=== PATIENT | female | born 1940 | race Caucasian/White ===

== ENCOUNTER → 2017-11-14 | Outpatient (CLI) | payer MEDICARE ==
[~2017-11-14] MED LIST: ASPI-650 PO; BIOT25005 PO; CALC200T3 PO; CEPH-376 PO; CHOL100012 PO; CHOL10003 PO; CYAN1TAB29 PO; DOCU100T6 PO; DOXY100T10 PO; HYDR-3240 PO; HYDR200T PO; IBUP-1221 PO; Iron Supplement PO; LACT1CAP35 PO; LACT1CAP37 PO; MOME13HF2 INH; MULT-257 PO; OMEP-110 PO; SULF1TAB24; URSO300C27 PO
[2017-11-14 14:54] LABS: BASOPHILS # (AUTO) 0.02 x10^3/uL (0-0.1); BASOPHILS % (AUTO) 0 % (0-1); EOSINOPHILS # (AUTO) 0.15 x10^3/uL (0-0.4); EOSINOPHILS % (AUTO) 2 % (1-7); LYMPHOCYTES # (AUTO) 0.86 x10^3/uL (1-3.4); LYMPHOCYTES % (AUTO) 14 % (22-44); MD NO; MEAN CORPUSCULAR HEMOGLOBIN 30.7 pg (27.0-34.8); MEAN CORPUSCULAR HGB CONC 33.6 g/dL (32.4-35.8); MEAN CORPUSCULAR VOLUME 91.4 fL (80-100); MEAN PLATELET VOLUME 8.6 fL (7.4-10.4); MONOCYTES # (AUTO) 0.35 x10^3/uL (0.2-0.8); MONOCYTES % (AUTO) 6 % (2-9); NEUTROPHILS # (AUTO) 4.84 x10^3/uL (1.8-6.8); NEUTROPHILS % (AUTO) 78 % (42-75); PLATELET COUNT 246 x10^3/uL (130-400); RED BLOOD COUNT 3.79 x10^6/uL (3.82-5.3); RED CELL DISTRIBUTION WIDTH 14.1 % (9.6-15.2)
[2017-11-14 15:01] LABS: ANION GAP 6 mmol/L (5-15); CHLORIDE 105 mmol/L (98-107)
[2017-11-14 15:17] LABS: MICROSCOPIC AUTO
[2017-11-14 15:26] LABS: CULTURE INDICATED? YES
[2017-11-14 15:45] LABS: HCT (SEDRATE) 34.7 % (34.6-47.8)
== END | disposition home or self-care (01) ==
LOC: STAR 12:35
PROVIDERS: ATTEND Orthopaedic Surgery
DX: Z01.818 Encounter for other preprocedural examination (principal); I10 Essential (primary) hypertension; R82.99 Other abnormal findings in urine; Z90.710 Acquired absence of both cervix and uterus; Z96.651 Presence of right artificial knee joint; T84.53XD Infection and inflammatory reaction due to internal right knee prosthesis, subsequent encounter; S83.124 Posterior dislocation of proximal end of tibia, right knee; X58.XXXD Exposure to other specified factors, subsequent encounter
CPT/HCPCS: 36415; 80048; 81001; 85025; 85651; 86141; 87081; 87086; 93005

== ENCOUNTER 2017-12-27 10:11 | Inpatient (IN) | payer MEDICARE ==
[~2017-12-27] VITALS: Ht 162.6 cm; Wt 76.8 kg
[~2017-12-27 10:11] MED LIST changes: -HYDR200T PO; +HYDR200T72 PO
[2017-12-27 10:33] LABS: BASOPHILS # (AUTO) 0.02 x10^3/uL (0-0.1); BASOPHILS % (AUTO) 0 % (0-1); EOSINOPHILS # (AUTO) 0.05 x10^3/uL (0-0.4); EOSINOPHILS % (AUTO) 1 % (1-7); LYMPHOCYTES # (AUTO) 0.53 x10^3/uL (1-3.4); LYMPHOCYTES % (AUTO) 9 % (22-44); MD NO; MEAN CORPUSCULAR HEMOGLOBIN 30.3 pg (27.0-34.8); MEAN CORPUSCULAR HGB CONC 33.5 g/dL (32.4-35.8); MEAN CORPUSCULAR VOLUME 90.6 fL (80-100); MEAN PLATELET VOLUME 9.2 fL (7.4-10.4); MONOCYTES # (AUTO) 0.16 x10^3/uL (0.2-0.8); MONOCYTES % (AUTO) 3 % (2-9); NEUTROPHILS # (AUTO) 5.28 x10^3/uL (1.8-6.8); NEUTROPHILS % (AUTO) 88 % (42-75); PLATELET COUNT 316 x10^3/uL (130-400); RED BLOOD COUNT 3.89 x10^6/uL (3.82-5.3); RED CELL DISTRIBUTION WIDTH 15.3 % (9.6-15.2)
[2017-12-27] MEDS ORDERED: MORPHINE SULFATE 4 MG/ML, 1ML ONE ×2 (10:38→10:54)
[2017-12-27] MEDS ORDERED: ASPIRIN 81 MG TABLET CHEW ONE (10:39)
[2017-12-27] MEDS: MORPHINE SULFATE 4 MG/ML, 1ML IVPush PRN ×2 (10:40→10:59)
[2017-12-27 10:52] LABS: INTERNATIONAL NORMALIZED RATIO 1.03 (0.93-1.1); PROTHROMBIN TIME 10.7 Seconds (9.6-11.5)
[2017-12-27] MEDS ORDERED: ASPIRIN 81 MG TABLET CHEW PO ONE (11:00)
[2017-12-27] MEDS ORDERED: ONDANSETRON 2MG/ML, 2ML IVPush ONE (11:00)
[2017-12-27] MEDS ORDERED: ONDANSETRON 2MG/ML, 2ML IVPush PRN (11:30)
[2017-12-27] MEDS ORDERED: ACETAMINOPHEN 650 MG/20.3 ML UDC PO PRN (11:30)
[2017-12-27 12:52] VITALS: BP 160/77
[2017-12-27 13:17] VITALS: BP 160/77
[2017-12-27 20:00] VITALS: BP 137/80
[2017-12-27] MEDS: ATORVASTATIN 40 MG TABLET PO SCH (20:47)
[2017-12-27 21:30] VITALS: BP 137/65
[2017-12-28 02:00] VITALS: BP 139/75
[2017-12-28 05:59] LABS: CHOL/HDL RATIO 2.5; LDL/HDL RATIO 1.3 (0.5-3.0)
[2017-12-28 09:30] VITALS: BP 121/75
[2017-12-28] MEDS ORDERED: DOXY100C2 PO (10:06)
[2017-12-28] MEDS: ASPIRIN 81 MG TABLET CHEW PO/NG SCH (10:08)
[2017-12-28 14:00] VITALS: BP 110/68
[2017-12-28] MEDS ORDERED: ACETAMINOPHEN 325 MG TABLET ONE (16:43)
[2017-12-28] MEDS: LACTOBACILLUS 1GM/ PACKET PO SCH ×2 (16:47→20:17)
[2017-12-28 20:15] VITALS: BP 107/74
[2017-12-28] MEDS: DOXYCYCLINE 100MG CAP PO SCH (20:17)
[2017-12-28] MEDS: HYDROXYCHLOROQUINE 200 MG TABLET PO SCH ×2 (20:17→21:00)
[2017-12-28] MEDS: OMEPRAZOLE 20 MG CAPSULE.DR PO SCH (20:17)
[2017-12-28] MEDS: ATORVASTATIN 40 MG TABLET PO SCH (20:17)
[2017-12-29 03:21] VITALS: BP 145/76
[2017-12-29 07:57] VITALS: BP 146/84
[2017-12-29] MEDS: HYDROXYCHLOROQUINE 200 MG TABLET PO SCH (09:00)
[2017-12-29] MEDS: OMEPRAZOLE 20 MG CAPSULE.DR PO SCH (09:55)
[2017-12-29] MEDS: DOXYCYCLINE 100MG CAP PO SCH (09:55)
[2017-12-29] MEDS: LACTOBACILLUS 1GM/ PACKET PO SCH (09:56)
[2017-12-29] MEDS: ASPIRIN 81 MG TABLET CHEW PO/NG SCH (09:56)
[2017-12-29 12:48] VITALS: BP 128/80
== END 2017-12-29 13:58 | disposition home or self-care (01) | DRG 64 ==
LOC: ED 10:23 → EDIP 11:08 → 4EST 12:32
PROVIDERS: ADMIT Internal Medicine; ATTEND Internal Medicine
DX: I63.9 Cerebral infarction, unspecified (principal); G93.40 Encephalopathy, unspecified; M32.9 Systemic lupus erythematosus, unspecified; R47.01 Aphasia; I10 Essential (primary) hypertension; M19.90 Unspecified osteoarthritis, unspecified site; Z90.49 Acquired absence of other specified parts of digestive tract; Z90.710 Acquired absence of both cervix and uterus
CPT/HCPCS: 36415; 70450; 70544; 80047; 80061; 85025; 85610; 85730; 93005; 93306; 93880; 96374; 92523-GN

== ENCOUNTER → 2018-03-27 | Outpatient (CLI) | payer MEDICARE ==
[~2018-03-27] MED LIST changes: +ATOR10TA PO; +CHOL3000 PO; +CLOP75TA52 PO; +DOXY100C PO; +DOXY100C2 PO; +MICO142C TP; +MV-M1TAB3 PO; +NABU500T PO; +NYST1000 PO; +PEG15DRO4 EACHEYE; +TYLENOL PO
[2018-03-27 12:31] LABS: BASOPHILS # (AUTO) 0.03 x10^3/uL (0-0.1); BASOPHILS % (AUTO) 0 % (0-1); EOSINOPHILS # (AUTO) 0.23 x10^3/uL (0-0.4); EOSINOPHILS % (AUTO) 4 % (1-7); LYMPHOCYTES % (AUTO) 16 % (22-44); MD NO; MEAN CORPUSCULAR HEMOGLOBIN 31.4 pg (27.0-34.8); MEAN CORPUSCULAR HGB CONC 33.6 g/dL (32.4-35.8); MEAN CORPUSCULAR VOLUME 93.3 fL (80-100); MEAN PLATELET VOLUME 7.8 fL (7.4-10.4); MONOCYTES # (AUTO) 0.41 x10^3/uL (0.2-0.8); MONOCYTES % (AUTO) 7 % (2-9); NEUTROPHILS # (AUTO) 4.41 x10^3/uL (1.8-6.8); NEUTROPHILS % (AUTO) 73 % (42-75); PLATELET COUNT 285 x10^3/uL (130-400); RED BLOOD COUNT 3.65 x10^6/uL (3.82-5.3); RED CELL DISTRIBUTION WIDTH 14.3 % (9.6-15.2)
[2018-03-27 12:34] LABS: MICROSCOPIC AUTO
[2018-03-27 12:36] LABS: CULTURE INDICATED? YES
[2018-03-27 12:41] LABS: ANION GAP 7 mmol/L (5-15); CALCIUM 8.7 mg/dL (8.5-10.1); CHLORIDE 107 mmol/L (98-107)
== END | disposition home or self-care (01) ==
LOC: STAR 10:57
PROVIDERS: ATTEND Orthopaedic Surgery
DX: Z01.818 Encounter for other preprocedural examination (principal); T84.84XD Pain due to internal orthopedic prosthetic devices, implants and grafts, subsequent encounter; Z96.651 Presence of right artificial knee joint
CPT/HCPCS: 36415; 80048; 81001; 85025; 87081; 87086; 93005

== ENCOUNTER 2018-04-08 08:32 | Inpatient (IN) | payer MEDICARE ==
[~2018-04-08] VITALS: Ht 162.6 cm; Wt 72.1 kg
[~2018-04-08 08:32] MED LIST changes: +EPINEPHRINE 1 MG/ML, 1ML ONE; +KETOROLAC 60 MG/2 ML ONE; +ROPIvacaine/PF 0.2%, 20 ML ONE; +SODIUM CHLORIDE 0.9% 100 ML ONE; +TRANEXAMIC ACID 100 MG/ML, 10ML ONE; +VANCOMYCIN 1,000 MG ONE
[2018-04-08] MEDS ORDERED: VANCOMYCIN PER PHARMACY MC STA (08:55)
[2018-04-08] MEDS ORDERED: LACTATED RINGERS 1,000 ML IV SCH (09:24)
[2018-04-08] MEDS ORDERED: ONDANSETRON ODT 8 MG PO ONE (09:30)
[2018-04-08] MEDS ORDERED: ACETAMINOPHEN 500 MG TABLET PO ONE (09:30)
[2018-04-08] MEDS ORDERED: GABAPENTIN 300 MG CAPSULE PO ONE (09:30)
[2018-04-08] MEDS ORDERED: DIAZEPAM 5 MG TABLET PO ONE (09:30)
[2018-04-08] MEDS ORDERED: SCOPOLAMINE PATCH, 1.5MG PATCH.TD72 TD ONE (09:30)
[2018-04-08 09:58] VITALS: BP 126/82
[2018-04-08] MEDS ORDERED: VANCOMYCIN 1,400 MG in SODIUM CHLORIDE 0.9% 250 ML IV ONE (10:00)
[2018-04-08] MEDS ORDERED: MIDAZOLAM 1 MG/ML, 2ML ONE (10:38)
[2018-04-08] MEDS ORDERED: FENTANYL PF 250 MCG/5ML ONE (10:39)
[2018-04-08] MEDS ORDERED: BUPIVACAINE/PF 0.25% ONE (10:40)
[2018-04-08] MEDS ORDERED: SUCCINYLCHOLINE 20 MG/ML, 10ML ONE (11:41)
[2018-04-08] MEDS ORDERED: ROCURONIUM 10 MG/ML,10ML ONE (11:41)
[2018-04-08] MEDS ORDERED: EPHEDRINE 50 MG/ML, 1ML ONE (11:41)
[2018-04-08] MEDS ORDERED: PHENYLEPHRINE 10 MG/ML ONE (11:41)
[2018-04-08] MEDS ORDERED: ROPIVACAINE 0.2% IV ONE (12:00)
[2018-04-08] MEDS ORDERED: ALBUTEROL/IPRATROPIUM 2.5MG/0.5MG, 3 ML NPPB PRN (13:00)
[2018-04-08] MEDS ORDERED: MORPHINE SULFATE 4 MG/ML, 1ML IVPush PRN (13:00)
[2018-04-08] MEDS ORDERED: DIAZEPAM 5 MG/ML, 2ML IVPush PRN (13:00)
[2018-04-08] MEDS ORDERED: OXYcodone 5 MG/5 ML ORAL.SOL UDC PO PRN (13:00)
[2018-04-08] MEDS ORDERED: PROMETHAZINE 25 MG/ML, 1ML IV PRN (13:00)
[2018-04-08] MEDS ORDERED: hydrALAzine 20 MG/ML, 1ML IV PRN (13:00)
[2018-04-08] MEDS ORDERED: MEPERIDINE/PF 25MG/0.5ML IVPush PRN (13:00)
[2018-04-08] MEDS ORDERED: LABETALOL 5MG/ML, 20ML IV PRN (13:00)
[2018-04-08] MEDS ORDERED: EPHEDRINE 50 MG/ML, 1ML IM PRN (13:00)
[2018-04-08] MEDS ORDERED: ONDANSETRON ODT 8 MG PO PRN (13:00)
[2018-04-08] MEDS ORDERED: MIDAZOLAM 1 MG/ML, 2ML IV PRN (13:00)
[2018-04-08] MEDS ORDERED: HYDROmorphone 1 MG/ML, 1ML IV PRN (13:00)
[2018-04-08] MEDS ORDERED: CEFAZOLIN 1,000 MG ONE (14:08)
[2018-04-08] MEDS ORDERED: ONDANSETRON 2MG/ML, 2ML ONE (14:08)
[2018-04-08] MEDS ORDERED: PROPOFOL 10 MG/ML, 20ML ONE (14:08)
[2018-04-08] MEDS ORDERED: DEXAMETHASONE 4 MG/ML, 1ML ONE (14:08)
[2018-04-08] MEDS ORDERED: FENTANYL PF 100 MCG/2ML ONE (14:51)
[2018-04-08] MEDS ORDERED: OXYcodone 5 MG/5 ML ORAL.SOL UDC ONE (14:51)
[2018-04-08] MEDS: FENTANYL PF 100 MCG/2ML IV PRN ×4 (14:55→15:44)
[2018-04-08] MEDS ORDERED: MAGNESIUM HYDROXIDE 8%, 30ML UDC PO PRN (15:00)
[2018-04-08] MEDS ORDERED: DIAZEPAM 5 MG TABLET PO PRN (15:00)
[2018-04-08] MEDS ORDERED: LORazepam 1MG TABLET PO PRN (15:00)
[2018-04-08] MEDS ORDERED: OXYcodone IR 5MG TABLET PO PRN (15:00)
[2018-04-08] MEDS ORDERED: HYDROmorphone 2 MG/ML, 1ML IV PRN (15:00)
[2018-04-08] MEDS ORDERED: DIPHENHYDRAMINE 25 MG CAPSULE PO PRN (15:00)
[2018-04-08] MEDS ORDERED: ONDANSETRON 4 MG TABLET PO PRN (15:00)
[2018-04-08] MEDS ORDERED: VANCOMYCIN PER PHARMACY MC PRN (15:00)
[2018-04-08] MEDS ORDERED: ONDANSETRON 2MG/ML, 2ML IV PRN (15:00)
[2018-04-08] MEDS ORDERED: TRANEXAMIC ACID 1,000 MG in SODIUM CHLORIDE 0.9% 100 ML IVPB ONE (15:00)
[2018-04-08] MEDS ORDERED: SENNA/DOCUSATE TABLET PO PRN (15:00)
[2018-04-08] MEDS ORDERED: ZOLPIDEM 5MG TABLET PO PRN (15:00)
[2018-04-08] MEDS ORDERED: BISACODYL 10 MG SUPP PR PRN (15:00)
[2018-04-08] MEDS ORDERED: ALUMINUM/MAG/SIMETHICONE 30 ML UDC PO PRN (15:00)
[2018-04-08] MEDS ORDERED: PROMETHAZINE 12.5 MG SUPP PR PRN (15:00)
[2018-04-08] MEDS ORDERED: PROMETHAZINE 25 MG/ML, 1ML IM PRN (15:00)
[2018-04-08] MEDS: ACETAMINOPHEN 650 MG/20.3 ML UDC PO SCH ×2 (15:00→22:55)
[2018-04-08] MEDS ORDERED: MEPERIDINE/PF 50 MG/ML ONE (15:48)
[2018-04-08] MEDS: CEFAZOLIN PMX 1GM/50ML 50 ML IVPB SCH (17:29)
[2018-04-08] MEDS ORDERED: PHARMACOKINETIC MONITORING MC PRN (17:30)
[2018-04-08] MEDS ORDERED: PHARMACOKINETIC CONSULTATION MC ONE (17:30)
[2018-04-08] MEDS: DOXYCYCLINE 100MG TABLET PO SCH (19:16)
[2018-04-08 19:26] VITALS: BP 90/51
[2018-04-08] MEDS: CALCIUM CARBONATE 500 MG TAB.CHEW PO SCH (20:33)
[2018-04-08] MEDS: OMEPRAZOLE 20 MG CAPSULE.DR PO SCH (20:36)
[2018-04-08] MEDS: DOCUSATE 100 MG CAPSULE PO SCH (20:36)
[2018-04-08] MEDS: ATORVASTATIN 10 MG TABLET PO SCH (20:36)
[2018-04-08] MEDS: HYDROXYCHLOROQUINE 200 MG TABLET PO SCH (20:37)
[2018-04-08] MEDS: D5%-0.45% NACL 1,000 ML IV SCH (22:55)
[2018-04-08 23:28] VITALS: BP 89/55
[2018-04-09] MEDS: CEFAZOLIN PMX 1GM/50ML 50 ML IVPB SCH ×3 (01:17→17:08)
[2018-04-09 03:56] VITALS: BP 87/52
[2018-04-09] MEDS: ASPIRIN 325 MG TABLET EC PO SCH (05:42)
[2018-04-09] MEDS: ACETAMINOPHEN 650 MG/20.3 ML UDC PO SCH ×3 (05:42→22:43)
[2018-04-09] MEDS ORDERED: DEXAMETHASONE 4 MG/ML, 1ML IVPush SCH (06:00)
[2018-04-09 06:12] LABS: CHLORIDE 107 mmol/L (98-107)
[2018-04-09 06:19] LABS: ALBUMIN 2.4 g/dL (3.4-5.0); ANION GAP 9 mmol/L (5-15); CALCIUM 8.4 mg/dL (8.5-10.1); CREATININE 0.78 mg/dL (0.55-1.02)
[2018-04-09] MEDS ORDERED: OMEPRAZOLE 20 MG CAPSULE.DR PO SCH (07:30)
[2018-04-09] MEDS: CLOPIDOGREL 75 MG TABLET PO SCH (08:04)
[2018-04-09] MEDS: DOCUSATE 100 MG CAPSULE PO SCH ×2 (08:04→22:42)
[2018-04-09] MEDS: HYDROXYCHLOROQUINE 200 MG TABLET PO SCH ×2 (08:05→22:42)
[2018-04-09] MEDS: TAMSULOSIN 0.4 MG CAP.ER.24H PO SCH (08:05)
[2018-04-09] MEDS: OMEPRAZOLE 20 MG CAPSULE.DR PO SCH ×2 (08:06→17:08)
[2018-04-09] MEDS: DOXYCYCLINE 100MG TABLET PO SCH ×2 (08:06→18:41)
[2018-04-09] MEDS: D5%-0.45% NACL 1,000 ML IV SCH ×2 (08:07→19:00)
[2018-04-09 08:08] VITALS: BP 91/60
[2018-04-09] MEDS: CALCIUM CARBONATE 500 MG TAB.CHEW PO SCH ×2 (10:00→22:00)
[2018-04-09] MEDS: VANCOMYCIN 1,400 MG in SODIUM CHLORIDE 0.9% 250 ML IV SCH (10:38)
[2018-04-09] MEDS: KETOROLAC 30 MG/1 ML IV SCH ×2 (15:04→22:43)
[2018-04-09 15:09] VITALS: BP 103/68
[2018-04-09 19:14] VITALS: BP 93/43
[2018-04-09] MEDS: ATORVASTATIN 10 MG TABLET PO SCH (22:42)
[2018-04-10] MEDS: CEFAZOLIN PMX 1GM/50ML 50 ML IVPB SCH ×3 (01:24→17:47)
[2018-04-10 01:33] VITALS: BP 100/63
[2018-04-10] MEDS: D5%-0.45% NACL 1,000 ML IV SCH ×2 (05:00→15:00)
[2018-04-10] MEDS: ASPIRIN 325 MG TABLET EC PO SCH (06:11)
[2018-04-10] MEDS: ACETAMINOPHEN 650 MG/20.3 ML UDC PO SCH ×3 (06:11→23:19)
[2018-04-10] MEDS: KETOROLAC 30 MG/1 ML IV SCH (06:11)
[2018-04-10] MEDS: CALCIUM CARBONATE 500 MG TAB.CHEW PO SCH ×2 (07:20→20:38)
[2018-04-10] MEDS: DOCUSATE 100 MG CAPSULE PO SCH ×2 (07:36→20:38)
[2018-04-10] MEDS: CLOPIDOGREL 75 MG TABLET PO SCH (07:36)
[2018-04-10] MEDS: DOXYCYCLINE 100MG TABLET PO SCH ×2 (07:36→20:37)
[2018-04-10] MEDS: TAMSULOSIN 0.4 MG CAP.ER.24H PO SCH (07:36)
[2018-04-10] MEDS: OMEPRAZOLE 20 MG CAPSULE.DR PO SCH ×2 (07:37→17:47)
[2018-04-10] MEDS: HYDROXYCHLOROQUINE 200 MG TABLET PO SCH ×2 (07:37→20:38)
[2018-04-10 07:42] VITALS: BP 101/65
[2018-04-10] MEDS: VANCOMYCIN 1,400 MG in SODIUM CHLORIDE 0.9% 250 ML IV SCH (09:40)
[2018-04-10 15:53] VITALS: BP 103/65
[2018-04-10 20:10] VITALS: BP 94/60
[2018-04-10] MEDS: ATORVASTATIN 10 MG TABLET PO SCH (20:38)
[2018-04-11] MEDS: D5%-0.45% NACL 1,000 ML IV SCH ×2 (01:00→10:59)
[2018-04-11] MEDS: CEFAZOLIN PMX 1GM/50ML 50 ML IVPB SCH ×2 (02:24→09:06)
[2018-04-11 02:38] VITALS: BP 110/81
[2018-04-11] MEDS: ASPIRIN 325 MG TABLET EC PO SCH (06:21)
[2018-04-11] MEDS: ACETAMINOPHEN 650 MG/20.3 ML UDC PO SCH (06:21)
[2018-04-11 07:18] VITALS: BP 104/68
[2018-04-11] MEDS: CALCIUM CARBONATE 500 MG TAB.CHEW PO SCH (07:45)
[2018-04-11] MEDS: HYDROXYCHLOROQUINE 200 MG TABLET PO SCH (07:48)
[2018-04-11] MEDS: CLOPIDOGREL 75 MG TABLET PO SCH (07:52)
[2018-04-11] MEDS: TAMSULOSIN 0.4 MG CAP.ER.24H PO SCH (07:52)
[2018-04-11] MEDS: DOXYCYCLINE 100MG TABLET PO SCH (07:52)
[2018-04-11] MEDS: DOCUSATE 100 MG CAPSULE PO SCH (07:52)
[2018-04-11] MEDS: OMEPRAZOLE 20 MG CAPSULE.DR PO SCH (07:52)
[2018-04-11] MEDS ORDERED: OXYC5TAB2 PO (10:52)
[2018-04-11] MEDS ORDERED: VANCOMYCIN 1,200 MG in SODIUM CHLORIDE 0.9% 250 ML IV SCH (11:00)
[2018-04-11 12:37] VITALS: BP 108/65
== END 2018-04-11 13:01 | disposition home or self-care (01) | DRG 466 ==
LOC: ORIP 08:32 → 4NOR 16:51
PROVIDERS: ADMIT Orthopaedic Surgery; ATTEND Orthopaedic Surgery
PROC: 0SRC0J9 Replacement of Right Knee Joint with Synthetic Substitute, Cemented, Open Approach (ICD-10-PCS; 2018-04-08)
PROC: 0JBN3ZZ Excision of Right Lower Leg Subcutaneous Tissue and Fascia, Percutaneous Approach (ICD-10-PCS; 2018-04-08)
PROC: 0SPC0JZ Removal of Synthetic Substitute from Right Knee Joint, Open Approach (ICD-10-PCS; principal; 2018-04-08 11:30)
DX: T84.53XA Infection and inflammatory reaction due to internal right knee prosthesis, initial encounter (principal); E43 Unspecified severe protein-calorie malnutrition; L97.819 Non-pressure chronic ulcer of other part of right lower leg with unspecified severity; Z96.651 Presence of right artificial knee joint; D64.9 Anemia, unspecified; E78.5 Hyperlipidemia, unspecified; K21.9 Gastro-esophageal reflux disease without esophagitis; Y83.1 Surgical operation with implant of artificial internal device as the cause of abnormal reaction of the patient, or of later complication, without mention of misadventure at the time of the procedure; Z79.02 Long term (current) use of antithrombotics/antiplatelets; Z86.73 Personal history of transient ischemic attack (TIA), and cerebral infarction without residual deficits; Z90.710 Acquired absence of both cervix and uterus; Z90.89 Acquired absence of other organs; Y92.89 Other specified places as the place of occurrence of the external cause
CPT/HCPCS: 36415; 80048; 80202; 82040; 85018; 87015; 87070; 87075; 87102; 87116; 87176; 87205; 87206; C1713; J0171; J0690; J1100; J1885; J2175; J2250; J2405; J2704; J2795; J3010; J3370; J3490; Q0162; C1762; C1776; J0330; J2370; J7050; J7120

== ENCOUNTER → 2018-11-10 | Outpatient (CLI) | payer MEDICARE ==
[~2018-11-10] MED LIST changes: +ASPI-515 PO; -EPINEPHRINE 1 MG/ML, 1ML ONE; -KETOROLAC 60 MG/2 ML ONE; +OXYC5TAB2 PO; -ROPIvacaine/PF 0.2%, 20 ML ONE; -SODIUM CHLORIDE 0.9% 100 ML ONE; +TRAM50TA2 PO; -TRANEXAMIC ACID 100 MG/ML, 10ML ONE; -VANCOMYCIN 1,000 MG ONE
== END | disposition home or self-care (01) ==
LOC: CFH 08:48
PROVIDERS: ATTEND Internal Medicine
DX: Z12.31 Encounter for screening mammogram for malignant neoplasm of breast (principal)
CPT/HCPCS: 77067

== ENCOUNTER → 2019-02-16 | Outpatient (CLI) | payer MEDICARE | END | disposition home or self-care (01) | LOC: CFH 08:21 | PROVIDERS: ATTEND Orthopaedic Surgery | DX: S72.21XD Displaced subtrochanteric fracture of right femur, subsequent encounter for closed fracture with routine healing (principal); M16.11 Unilateral primary osteoarthritis, right hip; K46.0 Unspecified abdominal hernia with obstruction, without gangrene; X58.XXXD Exposure to other specified factors, subsequent encounter ==